=== PATIENT | male | born 1955 | race Caucasian/White ===

== ENCOUNTER 2018-08-31 14:28 | Emergency (ER) | payer MEDICARE ==
[~2018-08-31] VITALS: Ht 185.4 cm; Wt 90.7 kg
[2018-08-31 14:52] VITALS: BP 114/85
[2018-08-31] MEDS ORDERED: KETOROLAC TROMETH 60MG/2ML VIAL IM ONE (15:15)
== END 2018-08-31 16:06 | disposition home or self-care (01) ==
LOC: ER 14:28
DX: S30.0XXA Contusion of lower back and pelvis, initial encounter (principal); M79.671 Pain in right foot; E11.9 Type 2 diabetes mellitus without complications; K21.9 Gastro-esophageal reflux disease without esophagitis; W11.XXXA Fall on and from ladder, initial encounter; Y93.89 Activity, other specified; Y99.8 Other external cause status; Y92.89 Other specified places as the place of occurrence of the external cause
CPT/HCPCS: 72100; 72220; 96372; 99283; J1885